=== PATIENT | male | born 1965 | race Caucasian/White ===

== ENCOUNTER → 2024-02-02 | Outpatient (CLI) | payer BC, SELFPAY ==
[2024-02-02 09:34] LABS: Bacteria 0 SEEN /hpf (None Seen); Mucous, Urine 0 SEEN /hpf (<or=2+); White Blood Cells 0 SEEN /hpf (0-5)
[2024-02-02 12:48] LABS: Color, Urine Yellow (Yellow); Glucose, Dipstick 250 mg/dl (Normal); Ketone-Dipstick 5 mg/dl (Negative); Leukocyte Esterase-Dipstick Negative /ul (Negative); Nitrite-Dipstick Negative (Negative); Occult Blood-Urine 10 /ul (Negative); Protein-Dipstick 15 mg/dl (Negative); Urine Bilirubin Dipstick Negative (Negative); Urine Clarity Clear (Clear); Urine Urobilinogen Normal (Normal)
[2024-02-02 13:00] LABS: Red Blood Cells-Urine 0-5 SEEN /hpf (0-5); Squamous Epithelial Cells - UA 0-5 SEEN /hpf (0-5)
[2024-02-02 13:08] LABS: Vitamin B12 666 pg/mL (211-911); Vitamin D,25 Hydroxy 46.3 ng/mL
[2024-02-02 13:17] LABS: Microalbumin:Creatinine Ratio 6.1 mg/g CRE (<30 mg/g CRE)
[2024-02-02 13:23] LABS: Cholesterol 155 mg/dL (200); High Density Lipoprotein 33 mg/dL; PSA,Total- Diagnostic 3.15 ng/mL (0.0-4.0); Triglycerides 129 mg/dL; Very Low Density Lipoprotein 26 mg/dL (5-40)
== END | disposition home or self-care (01) ==
LOC: BIMLAB 09:00
PROVIDERS: PCP Internal Medicine; Visit Provider Internal Medicine
DX: R35.0 Frequency of micturition (principal); E56.9 Vitamin deficiency, unspecified; Z13.6 Encounter for screening for cardiovascular disorders
CPT/HCPCS: 36415; 80061; 81001; 82043; 82306; 82570; 82607; 84153

== ENCOUNTER 2024-04-11 14:40 | Emergency (ER) | payer BC, SELFPAY ==
[2024-04-11 14:41] VITALS: BP 113/81; PULSE 98; RESP 18; TEMP 36.1; O2SAT 97
--- NOTE | 2024-04-11 15:14 | RAD_ITS ---
EXAM: XR RIGHT HIP WITH PELVIS WHEN PERFORMED, 2 OR 3 VIEWS CLINICAL INDICATION: pain TECHNIQUE: Two or three views of the right hip with pelvis when performed. COMPARISON: No relevant prior studies available. FINDINGS: BONES/JOINTS: Cortical heterogeneity along the right iliac bone with multiple fractures. Pathologic fracture is of concern. No destructive or sclerotic lesions. Note that overlapping bowel shadows may however obscure fine detail. Sacroiliac joint is unremarkable. No widening of the pubic symphysis. The articular structures are unremarkable. SOFT TISSUES: Unremarkable. No soft tissue swelling or gas. RAD/HIP, UNI W/ Pelvis 2-3 Views IMPRESSION: Cortical heterogeneity along the right iliac bone with multiple fractures. Pathologic fracture is of concern. Electronically Signed: Lang Rogel MD at 16:27 EDT Reading Location ID and State: [facility] / [place] , Service support ,
--- NOTE | 2024-04-11 15:14 | CT_ITS ---
We are attempting to reach an attending provider to discuss findings. An addendum with communication details will be sent when the communication is complete. EXAM: CT HEAD WITHOUT INTRAVENOUS CONTRAST CLINICAL INDICATION: confusion, metastatic melanoma TECHNIQUE: Multiple axial images were obtained of the head without intravenous contrast. This CT exam was performed using one or more of the following dose reduction techniques: automated exposure control, adjustment of the mA and/or kV according to patient size, and/or use of iterative reconstruction technique. RADIATION DOSE: CTDIvol = 44.99 mGy, DLP = 846.73 mGy-cm COMPARISON: No relevant prior studies available. FINDINGS: BRAIN AND EXTRA-AXIAL SPACES: 7.2 mm slightly hyperdense lesion in the left frontal lobe. Series 2 image 39. Slightly hyperdense lesion in the medial left parietal lobe measuring 7.7 mm. Series 2 image 35. There are other hyperdense lesions throughout both cerebral hemispheres concerning for metastatic disease. CT with IV or MRI with IV can better evaluate. No intra- or extra-axial hemorrhage. No evidence of acute infarct. No intracranial mass or mass effect. There is preservation of the ureña/white matter interface. Posterior fossa structures are unremarkable. Ventricles are appropriate for age. No hydrocephalus. Basal cisterns are patent. BONES/JOINTS: Unremarkable. No discrete lytic or blastic abnormalities. SINUSES: Sinus disease. MASTOID AIR CELLS: Unremarkable. Clear. ORBITS: Visualized globes, extraocular muscles, optic nerves and retrobulbar fat appear unremarkable. CT/Brain/Head without Contrast IMPRESSION: Multiple hyperdense lesions throughout both cerebral hemispheres concerning for metastatic disease. CT with IV or MRI with IV can better evaluate. Electronically Signed: Lang Rogel MD at 16:15 EDT ,
--- NOTE | 2024-04-11 15:15 | EKG12_ITS ---
Test Reason : CONFUSION Blood Pressure : / mmHG Vent. Rate : 090 BPM Atrial Rate : 090 BPM P-R Int : 164 ms QRS Dur : 112 ms QT Int : 396 ms P-R-T Axes : 030 -38 004 degrees QTc Int : 484 ms Normal sinus rhythm Left axis deviation Prolonged QT Abnormal ECG Confirmed by ANDREW WEBB, RODOLFO ([id number]), editor producer RAMOS ARELLANO ([id number]) on 04/13/2024 2:26:51 PM Referred By: Confirmed By:NGOZI MORALES MD
--- NOTE | 2024-04-11 15:15 | EDS_ITS ---
HPI History of Present Illness Chief Complaint: General Illness Informant: patient and spouse/S.O. Narrative Narrative: 58-year-old male brought in on Friday for multiple complaints according to the spouse. Urinary frequency and urgency has been waxing and waning for couple months but worse in the last 3 days. Seemed confused and disoriented yesterday transiently but seems to be doing better today. Pain in the right groin that is limiting his ability to bear weight because it hurts worse, making him use crutches, for the last several weeks. It was because of this discomfort that he had an ultrasound of the right lower extremity and diagnosed with a DVT behind the knee and placed on apixaban which she has been on for several weeks since then. Yesterday he was really fatigued. Spouse states they went to the doctor couple days ago because of the groin pain. She states they told him to come to the ER if it got worse, which is why she is here today, but she states she is not exactly sure why they told her that. Patient states that he moves his right leg around while resting here does not hurt but if he puts weight on it it does. He denies fall injury. He denies any fevers or chills recently. He had vomiting for several days this past week, none yesterday but he has been very fatigued since then. He has metastatic melanoma to the brain. He received radiation to the brain. He is currently on chemotherapy pill. [facility] Medical History (Updated 04/11/24 @ 19:[address] Kain iNchole MD) Diabetes Melanoma DVT (deep venous thrombosis) Anemia Gout Home Medications ?Medication ?Instructions ?Recorded ?Last Taken ?Type binimetinib 15 mg tablet (Mektovi) 45 mg PO Q12H 01/14/24 Unknown History encorafenib 75 mg capsule 450 mg PO DAILY 01/14/24 Unknown History (Braftovi) insulin lispro 100 unit/mL See Rx Instructions subcut TIDCM 01/14/24 Unknown History subcutaneous pen apixaban 5 mg tablet (Eliquis) 5 mg PO Q12H 04/09/24 Unknown History cyclobenzaprine 5 mg tablet 5 mg PO TID PRN muscle spasm #30 04/09/24 Unknown Rx tabs insulin degludec 100 unit/mL (3 14 unit subcut DAILY 04/11/24 Unknown History mL) subcutaneous pen (Tresiba FlexTouch U-100 insulin) potassium chloride 20 mEq 20 meq PO BID #8 tabs 04/11/24 Unknown Rx tablet,extended release Allergy/AdvReac Type Severity Reaction Status Date / Time bee venom protein (honey bee) Allergy Severe Anaphylaxis Verified 04/11/24 14:41 Family History Mother Skin cancer CVA (cerebral vascular accident) Dementia Anxiety and depression Father Diabetes Myocardial infarction Grandmother Anxiety and depression Alzheimer disease Grandfather Skin cancer melanoma Surgical History History of carpal tunnel release History of ankle surgery History of nasal surgery S/P appendectomy S/P wrist surgery S/P rotator cuff repair H/O Spinal surgery H/O local excision of skin lesion Social History adopted: No household members: spouse number of children: 3 current occupational status: unemployed pets and animals: Yes Smoking Status: Never smoker Electronic Cigarette Use: not used alcohol intake: never substance use type: does not use diet: diabetic caffeine: Yes (<6) Type: carbonated beverages frequency: daily seatbelt use: always do you feel safe at home: Yes ROS ROS ED Constitutional Constitutional ED: Reports fatigue and weakness; Denies chills or fever(s) Eyes Eyes: Denies blurry vision, change in vision or diplopia ENT ENT ED: Denies rhinorrhea or sore throat Cardiovascular Cardiovascular: Denies chest pain or palpitations Respiratory/Chest Respiratory/Chest: Denies cough or dyspnea Gastrointestinal Gastrointestinal: Reports as per HPI, nausea and vomiting; Denies abdominal pain or diarrhea Genitourinary Genitourinary ED: Reports urinary frequency and urinary urgency; Denies dysuria or hematuria Musculoskeletal Musculoskeletal: Reports other Details: pain R groin ; Denies back pain or neck pain Integumentary Denies abscess or rash Neurologic Neurologic: Reports as per HPI and other Details: Denies being off balance but trouble walking due to pain in the groin only ; Denies abnormal speech, dizziness, focal weakness, headache(s), paresthesias or weakness Psychiatric Psychiatric: Denies anxiety or suicidal thoughts EXAM Physical Exam Const Vital Signs: 04/11/24 14:41 04/11/24 15:05 04/11/24 16:48 Temperature 97 F L 99.1 F Temperature Source Temporal Oral Pulse Rate 98 65 Respiratory Rate 18 16 Respiratory Pattern Normal Blood Pressure 113/81 H 124/78 H Blood Pressure Mean 91 93 Pulse Ox 97 93 Oxygen Delivery Method Room Air Room Air 04/11/24 17:26 04/11/24 17:57 Temperature 97 F L 98.5 F Temperature Source Oral Pulse Rate 76 68 Respiratory Rate 16 16 Respiratory Pattern Blood Pressure 162/88 H 110/71 Blood Pressure Mean 112 84 Pulse Ox 97 94 Oxygen Delivery Method Room Air Positive well nourished and well developed General Appearance ED: well developed and NAD HEENT Reports moist mucous membranes normocephalic and atraumatic Eyes PERRL and EOMs intact bilaterally Neck full ROM, no lymphadenopathy and supple Chest Wall inspection of chest normal and palpation of chest normal Resp normal respiratory effort and clear to auscultation bilaterally Cardio regular rate, regular rhythm and no murmurs Rate: Negative for tachycardic GI non-tender and non-distended Auscultation: normoactive bowel sounds Palpation: soft Back/Spine no CVA tenderness General Back: other FROM Cervical Spine: Negative for cervical spine tenderness Thoracic Spine / Upper Back: Negative for thoracic spinal tenderness Lumbar Spine / Lower Back: Negative for lumbar spinal tenderness Extremity normal to inspection Extremity Narrative: Tender and soft tissues of right inguinal crease, medially near scrotum. There is no palpable lymphadenopathy, abscess, skin abnormality or lesion here. The scrotum is benign and nontender. When I assist him in flexing the knee up while lying supine, he has no pain. When trying to hold his right lower extremity up in the air on his own without assistance, the groin hurts. With his leg lying on the bed at rest and performing a passive logroll, he has no groin pain. When getting him up on his feet, he has trouble bearing weight on the right lower extremity due to the pain in the groin, and although he is able to lift his knee up while standing on his left lower extremity only, he states it hurts in the groin. General Extremety ED: Yes tenderness; Negative for edema or pulses abnormal General Extremity: Negative for edema or pulses abnormal Neuro oriented x3, CN's II-XII intact bilaterally and no sensory deficits noted Neuro Narrative: Oriented to the month, the year, the place, to person and his spouse, he has the day of the month wrong; he states instead of . He is a little slow to answer questions but answers everything appropriately otherwise. Sensorium / Orientation: awake and alert Motor Exam: strength 5/5 throughout Psych Psych Narrative: Flat affect Skin no rashes or lesions noted and no wounds MDM MDM MDM Narrative Medical decision making narrative: is concerned because she was told if he has urinary frequency it could be a sign of increased intracranial pressure, and if he gets confused he could be bleeding in the brain because he is on apixaban. I reassured her, I do not think he has bleeding because he has no headache or focal neurologic deficit, syncopal episodes, recent injury, and his fatigue could be a number of things. It certainly possible that his metastases to the brain could be related, so I think performing a infectious metabolic cardiopulmonary workup in addition to a CT of the brain is reasonable. She agrees she is not confused right now compared to his baseline, and he is oriented for me. I reviewed the images of the head CT as well as the result which I agree with, radiology called me concerned that he may have brain mets. I confirmed with the and the patient these were already known. There is no acute intracranial abnormality but we do not have old CT to compare this to. There does not appear to be major mass effect/edema and there is no hemorrhage according to the radiologist. 2 view chest x-ray my interpretation shows no pneumonia. Three-view x-ray of the right hip and pelvis shows what appears to be fractures of the right ilium by my interpretation. Radiology in agreement I do not see pubic rami fractures and there is no acute hip abnormality and stated radiology was in agreement. I reevaluated the patient he is having tenderness in this area of the iliac wing. states a week ago he had her put a lidocaine patch in this area for him. He had a fall a month ago in the driveway, she did not see it he is amnestic to it, unknown if this happened there or if it is a pathologic fracture. Regardless it is nonoperative, weightbearing as tolerated. Labs reviewed. Urinalysis shows microscopic hematuria with no sign of an infection. Patient states at this point I have been passing blood and when asked details he states he is having blood in his bowel movements on occasion but not his urine. His potassium is low. I am replacing his potassium both orally and parenterally, since he is going to be waiting here for at least an hour after the potassium starts, they are amenable to obtaining a CT of the abdomen/pelvis to see if he has ureterolithiasis, which could have been causing him to have vomiting this past week as well as pain in his groin and hematuria. I reviewed the CT images as well as the result which I agree with, it shows basically stigmata of metastatic disease which is known to him, he has not had a PET scan in a while, and it does show some iliopsoas involvement which may be causing his groin pain or related to it. Given that he had some recent fracture findings in the right ilium/iliac wing, some of this is anterior to that may be hematoma. This is a noncontrasted scan and the radiologist did not comment on that. At this time I think outpatient follow-up with orthopedics would be reasonable, as well as oncology. gave him the potassium as well as a prescription for few more days of replacement. Lab Data Attestation: I reviewed the patient's lab results. Labs: Laboratory Results - last 24 hr 04/11/24 04/11/24 15:37 15:48 WBC 5.9 RBC 4.09 L Hgb 10.7 L Hct 32.9 L MCV 80.4 MCH 26.2 L MCHC 32.5 RDW Std Deviation 46.3 H RDW Coeff of Bianca 15.7 H Plt Count 388 MPV 9.8 Immature Gran % (Auto) 0.300 Neut % (Auto) 63.9 Lymph % (Auto) 21.8 Coles % (Auto) 11.3 H Eos % (Auto) 1.7 Baso % (Auto) 1.0 Absolute Neuts (auto) 3.8 Absolute Lymphs (auto) 1.29 Nucleated RBC % 0 Sodium 139 Potassium 3.2 L Chloride 112 H Carbon Dioxide 21.0 Anion Gap 6 BUN 14 Creatinine 0.96 Estim Creat Clear Calc 109.29 Est GFR (MDRD) Af Amer 104 Est GFR (MDRD) Non-Af 86 BUN/Creatinine Ratio 14.7 Glucose 130 H Calcium 7.0 L Troponin I High Sens 6 Urine Color Yellow Urine Clarity Clear Urine pH 5.0 Ur Specific Stratton 1.025 Urine Protein 30 H Urine Glucose (UA) Normal Urine Ketones Negative Urine Occult Blood 250 H Urine Nitrite Negative Urine Bilirubin 1 H Urine Urobilinogen 1 H Ur Leukocyte Esterase 25 H Urine RBC 25-50 SEEN Urine WBC 0-5 SEEN Ur Squamous Epith Cells 0 SEEN Urine Bacteria 0 SEEN Urine Mucus 0 SEEN Radiography Diagnostic Testing: Clinical Impression(s) from Imaging Studies Brain CT 04/11/24 15:14 IMPRESSION: Multiple hyperdense lesions throughout both cerebral hemispheres concerning for metastatic disease. CT with IV or MRI with IV can better evaluate. Electronically Signed: Lang Rogel MD at 16:15 EDT , ADDENDUM: 04/11/24 1628 IMPRESSION: Multiple hyperdense lesions throughout both cerebral hemispheres concerning for metastatic disease. CT with IV or MRI with IV can better evaluate. N.B. : The above Results were Read Back by Lang Rogel MD to Kain Nichole MD, and understanding confirmed on 04/11/2024 16:21:08 (ET). Electronically Signed: Lang Rogel MD at 16:15 EDT , Hip/Pelvis X-Ray 04/11/24 15:14 IMPRESSION: Cortical heterogeneity along the right iliac bone with multiple fractures. Pathologic fracture is of concern. Electronically Signed: Lang Rogel MD at 16:27 EDT , Chest X-Ray 04/11/24 16:10 IMPRESSION: 15 mm nodule in the left lower lobe. Correlation with prior imaging would be helpful if available. Otherwise, please obtain chest CT follow-up. Electronically Signed: Lang Rogel MD at 16:31 EDT , Abdomen/Pelvis CT 04/11/24 17:21 IMPRESSION: (NOT LISTED IN ORDER OF SIGNIFICANCE) Metastatic disease to lungs and liver. Mass of the right adrenal gland concerning for metastatic focus. Mass of the right iliopsoas muscle may represent infiltrating lymph nodes or metastatic disease. Regional right pelvic sidewall abnormal appearing mesenteric lymph nodes suggesting metastatic lymph nodes. Urinary bladder wall has wall thickening. This can be related to a partially contractile state. However, a cystitis is not excluded. Urinalysis should be performed in an effort to exclude cystitis. These findings can be related to the patient''s known history of metastatic melanoma. Other findings as above. Electronically Signed: Lang Rogel MD at 18:19 EDT Reading Location ID and State: [facility] / [place] , Service support , Rhythm Strip Rhythm Strip: Sinus Rhythm Rate: 90 Ectopy: None EKG Initial EKG: Attestation: I personally reviewed and interpreted this EKG as follows: Interpretation: Sinus Rhythm and No Acute Injury Pattern Comments: left axis; otherwise, nml Prior EKG tracings: not available for review Prior: No Prior Discharge Plan Triage Chief Complaint: General Illness ED Provider: Kain Nichole Dx/Rx/DC Orders Clinical Impression: Transient confusion, Hypokalemia, Metastatic melanoma, Fracture of ilium, right, closed, Mass of iliopsoas muscle group Instructions: ED Hypokalemia, ED Pelvic Fracture Prescriptions: New potassium chloride 20 mEq tablet extended release 20 meq PO BID Qty: 8 0RF No Action Braftovi 75 mg capsule 450 mg PO DAILY Mektovi 15 mg tablet 45 mg PO Q12H insulin lispro 100 unit/mL insulin pen See Rx Instructions subcut TIDCM Rx Instructions: subcutaneously 3 times daily with meals; sliding scale Eliquis 5 mg tablet 5 mg PO Q12H cyclobenzaprine 5 mg tablet 5 mg PO TID PRN (Reason: muscle spasm) Qty: 30 0RF Rx Instructions: can take 2 tabs at night insulin degludec [Tresiba FlexTouch U-100] 100 unit/mL (3 mL) insulin pen 14 unit subcut DAILY Primary Care Provider: Jo Mcelroy Referrals: Jo Mcelroy MD [Primary Care Provider] - 3-5 Days Sushil Quiñones, [Med Staff - Active Staff] - As soon as possible (call for ortho appt) Doctor,Your [Non-Staff] - As soon as possible (your oncologist) Print Language: Kiswahili Disposition Disposition: Home, Self Care
[2024-04-11 15:18] VITALS: BMI 33.2
--- NOTE | 2024-04-11 15:18 | ED.RN ---
NO OLD EKGS
[2024-04-11 15:47] LABS: Absolute Lymphocyte Count 1.29 X10^3/uL (0.83-4.51); Absolute Neutrophil Count 3.8 X10^3/uL (2.0-7.7); Basophil# 0.06 X10^3/uL; Eosinophils% 1.7 % (0-5); Hematocrit 32.9 % (40-54); Hemoglobin 10.7 g/dL (13.0-16.5); Lymphocyte # 1.29 X10^3/ul (0.83-4.51); Lymphocyte % 21.8 % (19-41); Mean Corp Hgb Conc 32.5 g/dL (32-36); Mean Corpuscular Hgb 26.2 pg (27.0-32.0); Mean Corpuscular Volume 80.4 fL (80-94); Mean Platelet Vol. 9.8 fl (6.2-12.0); Monocyte# 0.67 X10^3/uL; Monocyte% 11.3 % (0-10); NRBC Flagged by Analyzer 0 % (0-5); Neutrophil # 3.77 X10^3/uL (2.7-7.7); Neutrophil % 63.9 % (47-70); Platelet Count 388 K/mm3 (150-450); RBC Distribution Width CV 15.7 % (11.6-14.6); RBC Distribution Width SD 46.3 fl (35.1-43.9); Red Blood Count 4.09 M/mm3 (4.6-6.2); White Blood Count 5.9 K/mm3 (4.4-11.0)
[2024-04-11 15:57] LABS: Bacteria 0 SEEN /hpf (None Seen); Mucous, Urine 0 SEEN /hpf (<or=2+); Squamous Epithelial Cells - UA 0 SEEN /hpf (0-5)
[2024-04-11 15:59] LABS: Color, Urine Yellow (Yellow); Glucose, Dipstick Normal (Normal); Ketone-Dipstick Negative (Negative); Leukocyte Esterase-Dipstick 25 /ul (Negative); Nitrite-Dipstick Negative (Negative); Occult Blood-Urine 250 /ul (Negative); Protein-Dipstick 30 mg/dl (Negative); Specific Gravity, Urine 1.025 (1.002-1.030); Urine Clarity Clear (Clear); Urine Urobilinogen 1 mg/dl (Normal)
--- NOTE | 2024-04-11 16:10 | RAD_ITS ---
EXAM: XR CHEST, 2 VIEWS CLINICAL INDICATION: weakness TECHNIQUE: Frontal and lateral views of the chest. COMPARISON: No relevant prior studies available. FINDINGS: LUNGS AND PLEURAL SPACES: 15 mm nodule in the left lower lobe. Correlation with prior imaging would be helpful if available. Otherwise, please obtain chest CT follow-up. No pneumothorax. No effusion. HEART: Unremarkable. Cardiac silhouette not enlarged. MEDIASTINUM: Central airways and mediastinal contour are unremarkable. BONES/JOINTS: Thoracic spinal fixation hardware. No acute fracture. SOFT TISSUES: Unremarkable. RAD/Chest PA and Lateral IMPRESSION: 15 mm nodule in the left lower lobe. Correlation with prior imaging would be helpful if available. Otherwise, please obtain chest CT follow-up. Electronically Signed: Lang Rogel MD at 16:31 EDT ,
[2024-04-11 16:14] LABS: Anion Gap 6 (5-15); BUN 14 mg/dL (7-18); BUN/Creat Ratio 14.7 RATIO (10-20); Chloride 112 mmol/L (98-107); Creatinine, Serum 0.96 mg/dL (0.70-1.30); EST Glomerular Filtration Rate 86 mL/min (>60); Est Glom Filt Rate - Afr Amer 104 mL/min (>60); Estimated Creatinine Clearance 109.29 ml/min; Glucose 130 mg/dL (74-106); Potassium 3.2 mmol/L (3.5-5.1); Sodium Level 139 mmol/L (136-145); Troponin-I HS 6 pg/mL (3.0-78.0)
[2024-04-11 16:26] LABS: Urine Bilirubin Dipstick 1 mg/dL (Negative)
[2024-04-11 16:27] LABS: Red Blood Cells-Urine 25-50 SEEN /hpf (0-5)
[2024-04-11 16:28] LABS: White Blood Cells 0-5 SEEN /hpf (0-5)
[2024-04-11 16:48] VITALS: BP 124/78; PULSE 65; RESP 16; TEMP 37.3; O2SAT 93
--- NOTE | 2024-04-11 17:21 | CT_ITS ---
STUDY: CT Abdomen And Pelvis W/O Contrast Injection 04/11/2024 6:12 PM REASON FOR EXAM: Male, 58 years old. Abdominal pain R flank pain, vtg, hematuria Individualized dose optimization techniques were used for this CT. COMPARISON: None. TECHNIQUE: CT Abdomen And Pelvis W/O Contrast Injection FINDINGS: There are atherosclerotic calcifications of visualized coronary arteries. There are multiple lesions noted in the lungs which are likely related to metastatic disease. There are multiple lesions noted in the liver which are likely related to metastatic disease. Normal gallbladder and extrahepatic biliary system. Normal spleen. Normal pancreas. 49 mm mass of the right adrenal gland concerning for metastatic focus. There are hypodensities in the right kidney. These are consistent for cysts. No follow up required. Non obstructive 2 mm right renal parenchymal stones. Non obstructive 2 mm left renal parenchymal stones. Complex cyst of the left kidney measures 57 mm. It has peripheral calcifications. Normal visualized stomach. Normal small intestine. There are multiple colonic diverticula consistent with diverticulosis. There is non-visualization of the appendix. There are calcifications of the abdominal aorta. This is consistent for atherosclerotic disease. There is NO abdominal aortic aneurysm. Vascular workup can be obtained based on clinical correlation. Normal inferior vena cava. Subcentimeter mesenteric lymph nodes. Abnormal enlarged right-sided periaortic adenopathy. Urinary bladder wall has wall thickening. This can be related to a partially contractile state. However, a cystitis is not excluded. Urinalysis should be performed in an effort to exclude cystitis. Soft tissue mass visualized invading the right iliopsoas muscle. Multiple overlying abnormal irregular lymph nodes along the right paracolic gutter. Presacral inflammatory changes. Multiple enlarged lymph nodes following along the right external iliac artery. Destructive lesion of the right iliac wing There is an umbilical hernia containing fat. There are diffuse degenerative changes of the visualized lumbar spine. CT/Abdomen/Pelvis without Cont IMPRESSION: (NOT LISTED IN ORDER OF SIGNIFICANCE) Metastatic disease to lungs and liver. Mass of the right adrenal gland concerning for metastatic focus. Mass of the right iliopsoas muscle may represent infiltrating lymph nodes or metastatic disease. Regional right pelvic sidewall abnormal appearing mesenteric lymph nodes suggesting metastatic lymph nodes. Urinary bladder wall has wall thickening. This can be related to a partially contractile state. However, a cystitis is not excluded. Urinalysis should be performed in an effort to exclude cystitis. These findings can be related to the patient''s known history of metastatic melanoma. Other findings as above. Electronically Signed: Lang Rogel MD at 18:19 EDT ,
[2024-04-11] MEDS: Potassium Chloride Oral Tablet 20 MEQ 40 MEQ PO (17:51)
[2024-04-11] MEDS: Potassium Chloride 10mEq/100mL 10 MEQ/100 ML IV.SOLN. 100 MEQ IV BOLUS (17:51)
[2024-04-11 17:57] VITALS: BP 110/71; PULSE 68; RESP 16; TEMP 36.9; O2SAT 94
[2024-04-11 19:40] VITALS: BP 152/72; PULSE 16; RESP 88; TEMP 36.9; O2SAT 95
== END 2024-04-11 19:47 | disposition home or self-care (01) ==
PROVIDERS: Emergency Provider Emergency Medicine; PCP Internal Medicine; Visit Provider Emergency Medicine
DX: R41.0 Disorientation, unspecified (principal); S32.301A Unspecified fracture of right ilium, initial encounter for closed fracture; I82.491 Acute embolism and thrombosis of other specified deep vein of right lower extremity; C43.9 Malignant melanoma of skin, unspecified; E11.9 Type 2 diabetes mellitus without complications; Z79.4 Long term (current) use of insulin; R22.41 Localized swelling, mass and lump, right lower limb; E87.6 Hypokalemia; R31.29 Other microscopic hematuria; R35.0 Frequency of micturition; R39.15 Urgency of urination; Z79.01 Long term (current) use of anticoagulants; D64.9 Anemia, unspecified; M10.9 Gout, unspecified; Z79.899 Other long term (current) drug therapy
CPT/HCPCS: 70450; 71046; 73502; 74176; 80048; 81001; 84484; 85025; 93005; 96360; 99283; J7030; A4216

== ENCOUNTER → 2024-04-15 | Outpatient (CLI) | payer BC, SELFPAY ==
[2024-04-15 11:28] LABS: Squamous Epithelial Cells - UA 0 SEEN /hpf (0-5); White Blood Cells 0 SEEN /hpf (0-5)
[2024-04-15 12:09] LABS: Color, Urine Yellow (Yellow); Glucose, Dipstick Normal (Normal); Ketone-Dipstick 5 mg/dl (Negative); Leukocyte Esterase-Dipstick Negative /ul (Negative); Nitrite-Dipstick Negative (Negative); Occult Blood-Urine 10 /ul (Negative); Protein-Dipstick 30 mg/dl (Negative); Specific Gravity, Urine 1.025 (1.002-1.030); Urine Bilirubin Dipstick Negative (Negative); Urine Clarity Clear (Clear); Urine Urobilinogen Normal (Normal)
[2024-04-15 12:39] LABS: Red Blood Cells-Urine 0-5 SEEN /hpf (0-5)
[2024-04-15 12:41] LABS: Bacteria 2+ /hpf (None Seen)
[2024-04-15 12:42] LABS: Mucous, Urine 2+ /hpf (<or=2+)
[2024-04-15 12:43] LABS: Hyaline Cast 10-25 SEEN /lpf (0-5)
[2024-04-15 12:44] LABS: Fine Granular Cast- Urine 0-5 SEEN /lpf (0-5)
== END | disposition home or self-care (01) ==
LOC: LABSPEC 11:27
PROVIDERS: PCP Internal Medicine; Referring Provider Nurse Practitioner; Visit Provider Nurse Practitioner
DX: R35.0 Frequency of micturition (principal)
CPT/HCPCS: 81001; 87086